=== PATIENT | female | born 1965 | race African-American/Black ===

== ENCOUNTER 2020-10-01 12:41 | Emergency (ER) | payer OTHER ==
[~2020-10-01] VITALS: Ht 167.6 cm; Wt 108.9 kg
--- NOTE | 2020-10-01 12:44 | NUR ---
ED Nurse Note: pt MARIXA HAMM RA 12 from home c/o LUQ abd pain, N/D x 4 days. pt denies vomiting, states that she also has a WARREN and has had a cough. denies any sick contacts at home. pt denies any urinary symptoms at this time, no acute distress is noted
[2020-10-01 12:46] VITALS: BP 154/91
[2020-10-01 13:16] LABS: BASOPHILS % (AUTO) 0.6 % (0.0-2.0); EOSINOPHILS % (AUTO) 0.1 % (0.0-3.0); HEMATOCRIT 48.2 % (37.0-47.0); HEMOGLOBIN 15.6 G/DL (12.0-16.0); LYMPHOCYTES % (AUTO) 32.2 % (20.0-45.0); MEAN CORPUSCULAR VOLUME 86 FL (80-99); MONOCYTES % (AUTO) 8.3 % (1.0-10.0); NEUTROPHILS % (AUTO) 58.9 % (45.0-75.0); PLATELET COUNT 227 K/UL (150-450); RED CELL DISTRIBUTION WIDTH 14.4 % (11.6-14.8); WHITE BLOOD COUNT 5.9 K/UL (4.8-10.8)
[2020-10-01 13:30] LABS: CALCIUM 8.3 MG/DL (8.5-10.1); CREATININE 1.5 MG/DL (0.55-1.30); POTASSIUM 3.5 MMOL/L (3.5-5.1)
--- NOTE | 2020-10-01 13:32 | NUR ---
ED Nurse Note: oral temp recheck: 99.2. pt states that she is still unable to provide a urine sample at this time
[2020-10-01 13:35] LABS: ALBUMIN 3.8 G/DL (3.4-5.0); ALBUMIN/GLOBULIN RATIO 0.8 (1.0-2.7); BILIRUBIN,TOTAL 0.4 MG/DL (0.2-1.0)
--- NOTE | 2020-10-01 13:46 | Emergency Room Report ---
History of Present Illness General Chief Complaint: Abdominal Pain Source: Patient (Michael Etienne M.D.) Present Illness HPI Disclaimer: Please note that this report is being documented using [employer] technology. This can lead to erroneous entry secondary to incorrect inter pretation by the dictating instrument. HPI: 55-year-old female no reported past medical history presented for complaints of nausea vomiting diarrhea generalized body aches for the past couple of days. She denies any shortness of breath. She was febrile on arrival. She has had multiple episodes of nonbloody diarrhea in addition to occasional nausea and vomiting. Intermittent coughing. She denies any sick contacts. She has not been tested for COVID-19. Is epigastric in origin and nonradiating. (Michael Etienne M.D.) Allergies: Coded Allergies: No Known Allergies (Unverified , 10/01/20) COVID-19 Screening Contact w/high risk pt: No Experienced COVID-19 symptoms?: Yes COVID-19 Testing performed [employer]IVE: No (Michael Etienne M.D.) Patient History Reviewed Nursing Documentation: PMH: Agreed; PSxH: Agreed (Michael Etienne M.D.) Nursing Documentation-PMH Past Medical History: No Stated History (Michael Etienne M.D.) Review of Systems All Other Systems: negative except mentioned in HPI (Michael Etienne M.D.) Physical Exam Vital Signs Date Time Temp Pulse Resp B/P (MAP) Pulse Ox O2 Delivery O2 Flow Rate FiO2 10/01/20 12:33 100.6 107 18 154/91 (112) 94 Room Air Sp02 EP Interpretation: reviewed, normal, other - O2 saturation around 96% General Appearance: well appearing, no apparent distress Head: normocephalic, atraumatic Eyes: bilateral eye PERRL, bilateral eye EOMI ENT: hearing grossly normal, moist mucus membranes Neck: full range of motion, supple Respiratory: lungs clear, normal breath sounds, no rhonchi, no respiratory distress, no retraction, no wheezing Cardiovascular #1: normal peripheral pulses, no murmur, tachycardia Gastrointestinal: non tender, soft, non-distended, no guarding Neurologic: alert, oriented x3, no focal defects Skin: normal color, warm/dry (Michael Etienne M.D.) Medical Decision Making Diagnostic Impression: Primary Impression: COVID-19 Additional Impressions: Syncope Generalized weakness ER Course MDM: Differential included but not limited to viral syndrome, COVID-19, ga stroenteritis, gastritis to name a few Clinical course-IV inserted, IV fluids given. Patient placed on cardiac monitoring. She was febrile on arrival and Tylenol was given. Her abdominal exam was benign. She did have flulike symptoms. She denies sick contacts. Low suspicion for surgical abdominal disease has abdomen nontender to palpation. After IV fluids, Zofran and Tylenol patient's heart rate improved, she was not hypoxic. Laboratory studies showed no evidence of leukocytosis. Labs - Laboratory Tests Test 10/01/20 13:02 White Blood Count 5.9 K/UL (4.8-10.8) Red Blood Count 5.60 M/UL (4.20-5.40) H Hemoglobin 15.6 G/DL (12.0-16.0) Hematocrit 48.2 % (37.0-47.0) H Mean Corpuscular Volume 86 FL (80-99) Mean Corpuscular Hemoglobin 27.8 PG (27.0-31.0) Mean Corpuscular Hemoglobin Concent 32.3 G/DL (32.0-36.0) Red Cell Distribution Width 14.4 % (11.6-14.8) Platelet Count 227 K/UL (150-450) Mean Platelet Volume 6.8 FL (6.5-10.1) Neutrophils (%) (Auto) 58.9 % (45.0-75.0) Lymphocytes (%) (Auto) 32.2 % (20.0-45.0) Monocytes (%) (Auto) 8.3 % (1.0-10.0) Eosinophils (%) (Auto) 0.1 % (0.0-3.0) Basophils (%) (Auto) 0.6 % (0.0-2.0) Sodium Level 138 MMOL/L (136-145) Potassium Level 3.5 MMOL/L (3.5-5.1) Chloride Level 99 MMOL/L (98-107) Carbon Dioxide Level 26 MMOL/L (21-32) Anion Gap 13 mmol/L (5-15) Blood Urea Nitrogen 14 mg/dL (7-18) Creatinine 1.5 MG/DL (0.55-1.30) H Estimated Glomerular Filtration Rate 43.5 mL/min (>60) Glucose Level 152 MG/DL (74-106) H Lactic Acid Level Pending Calcium Level 8.3 MG/DL (8.5-10.1) L Total Bilirubin 0.4 MG/DL (0.2-1.0) Aspartate Amino Transferase (AST) 39 U/L (15-37) H Alanine Aminotransferase (ALT) 37 U/L (12-78) Alkaline Phosphatase 95 U/L (46-116) Total Protein 8.4 G/DL (6.4-8.2) H Albumin 3.8 G/DL (3.4-5.0) Globulin 4.6 g/dL Albumin/Globulin Ratio 0.8 (1.0-2.7) L On reevaluation: Patient feeling improved Plan-signed out to oncoming physician to follow-up on urinalysis and reassess (Michael Etienne M.D.) ER Course This patient was turned over to me by Dr. Etienne. Please see his history and physical exam for further details. Briefly, this patient presented with a viral-like syndrome. This included body aches, nausea, vomiting and diarrhea. I had planned on discharging this patient. However, when I went to discuss her discharge instructions, the patient stated that she was barely able to walk and that she passed out today for an unknown period of time and that she did not feel safe going home. She states that she is too ill to care for herself or even get around doing her activities of daily living. She is admitted for generalized weakness and inability to care for herself while she is ill. The patient is COVID-19 positive. This patient was evaluated in the context of the global COVID-19 pandemic, which necessitated consideration that the patient might be at risk for infection with the [id number] virus that causes COVID-19. Institutional protocols and algorithms that pertain to the evaluation of patients at risk for COVID-19 and the state of rapid change based on information released by multiple regulatory bodies including the CDC and federal and state organizations. These policies and algorithms were followed during the patient's care in the ED. Addendum: The patient's insurance company requested her transfer to a [facility]. The patient is stable for transfer. The patient was accepted by Dr. Perez at [facility]. Laboratory Tests Test 10/01/20 13:02 10/01/20 14:10 White Blood Count 5.9 K/UL (4.8-10.8) Red Blood Count 5.60 M/UL (4.20-5.40) H Hemoglobin 15.6 G/DL (12.0-16.0) Hematocrit 48.2 % (37.0-47.0) H Mean Corpuscular Volume 86 FL (80-99) Mean Corpuscular Hemoglobin 27.8 PG (27.0-31.0) Mean Corpuscular Hemoglobin Concent 32.3 G/DL (32.0-36.0) Red Cell Distribution Width 14.4 % (11.6-14.8) Platelet Count 227 K/UL (150-450) Mean Platelet Volume 6.8 FL (6.5-10.1) Neutrophils (%) (Auto) 58.9 % (45.0-75.0) Lymphocytes (%) (Auto) 32.2 % (20.0-45.0) Monocytes (%) (Auto) 8.3 % (1.0-10.0) Eosinophils (%) (Auto) 0.1 % (0.0-3.0) Basophils (%) (Auto) 0.6 % (0.0-2.0) Sodium Level 138 MMOL/L (136-145) Potassium Level 3.5 MMOL/L (3.5-5.1) Chloride Level 99 MMOL/L (98-107) Carbon Dioxide Level 26 MMOL/L (21-32) Anion Gap 13 mmol/L (5-15) Blood Urea Nitrogen 14 mg/dL (7-18) Creatinine 1.5 MG/DL (0.55-1.30) H Estimated Glomerular Filtration Rate 43.5 mL/min (>60) Glucose Level 152 MG/DL (74-106) H Lactic Acid Level 1.80 mmol/L (0.4-2.0) Calcium Level 8.3 MG/DL (8.5-10.1) L Total Bilirubin 0.4 MG/DL (0.2-1.0) Aspartate Amino Transferase (AST) 39 U/L (15-37) H Alanine Aminotransferase (ALT) 37 U/L (12-78) Alkaline Phosphatase 95 U/L (46-116) Total Protein 8.4 G/DL (6.4-8.2) H Albumin 3.8 G/DL (3.4-5.0) Globulin 4.6 g/dL Albumin/Globulin Ratio 0.8 (1.0-2.7) L Urine Color Yellow Urine Appearance Slightly cloudy Urine pH 5 (4.5-8.0) Urine Specific Warden 1.025 (1.005-1.035) Urine Protein 3+ (NEGATIVE) H Urine Glucose (UA) Negative (NEGATIVE) Urine Ketones 3+ (NEGATIVE) H Urine Blood 2+ (NEGATIVE) H Urine Nitrite Negative (NEGATIVE) Urine Bilirubin Negative (NEGATIVE) Urine Urobilinogen 1 MG/DL (0.0-1.0) H Urine Leukocyte Esterase 1+ (NEGATIVE) H Urine RBC 2-4 /HPF (0 - 2) H Urine WBC 0-2 /HPF (0 - 2) Urine Squamous Epithelial Cells Many /LPF (NONE/OCC) H Urine Bacteria Few /HPF (NONE) (Alaina Serrato DO) EKG Diagnostic Results Rate: tachycardiac Rhythm: NSR ST Segments: no acute changes Other Impression Sinus tachycardia (Michael Etienne M.D.) Rhythm Strip Diag. Results EP Interpretation: yes Rate: 84 Rhythm: NSR, no PVC's, no ectopy (Michael Etienne M.D.) Chest X-Ray Diagnostic Results Chest X-Ray Diagnostic Results : Chest X-Ray Ordered: Yes # of Views/Limited/Complete: 1 View Indication: Shortness of Breath EP Interpretation: Yes Interpretation: other - mild interstitial opacities vs underinflation Impression: Other - See above. Possible mild opacities. Electronically Signed by: Alaina Serrato DO (Alaina Serrato DO) Last Vital Signs Date Time Temp Pulse Resp B/P (MAP) Pulse Ox O2 Delivery O2 Flow Rate FiO2 10/01/20 13:32 99.2 10/01/20 12:46 107 18 Room Air 10/01/20 12:46 154/91 94 (Michael Etienne M.D.) Disposition: HOME, SELF-CARE Condition: Improved Signed Out To: Dr. Evans (Michael Etienne M.D.) Scripts Ondansetron Odt* (ZOFRAN ODT*) 8 Mg Tab.rapdis 8 MG ORAL Q6H PRN for Nausea & Vomiting, #10 TAB Prov: Alaina Serrato DO 10/01/20 Azithromycin* (ZITHROMAX*) 250 Mg Tablet 250 MG ORAL see instructions, #6 TAB 0 Refills Take two tables once daily for 1 day, then one tablet once daily for 4 days. Prov: Alaina Serrato DO 10/01/20 Referrals: [facility],REFERRING (PCP) Michael Etienne M.D. Oct 01, 2020 13:46 Alaina Serrato DO Oct 01, 2020 15:18
[2020-10-01 13:56] VITALS: BP_SYST 114; BP_SYST 147; BP_DIAS 69; BP_DIAS 88
--- NOTE | 2020-10-01 14:01 | Diagnostic Imaging Report ---
Indication: Shortness of breath Technique: One view of the chest Comparison: none Findings: Body habitus limits evaluation. Inspiration is suboptimal. Apparent prominence to the interstitium, is likely a result of crowding of the bronchovascular markings and may to some extent be related to body habitus, although the possibility of mild interstitial edema or interstitial infiltrates should also be considered. The heart size is upper limits normal. Impression: Hypoventilatory exam Equivocal mild interstitial congestion versus interstitial infiltrates. Correlate with clinical findings
--- NOTE | 2020-10-01 14:17 | NUR ---
ED Nurse Note: pt able to ambulate to restroom to provide urine sample without c/o dizziness, no syncope or near syncope. pt does c/o nausea, ERMD notified
[2020-10-01 14:24] LABS: APPEARANCE,URINE SLIGHTLY CLOUDY; BILIRUBIN, URINE NEGATIVE (NEGATIVE); GLUCOSE, URINE (UA) NEGATIVE (NEGATIVE); KETONES,URINE 3+ (NEGATIVE); LEUKOCYTE ESTERASE ,URINE 1+ (NEGATIVE); NITRITE,URINE NEGATIVE (NEGATIVE); PH,URINE 5 (4.5-8.0); PROTEIN,URINE 3+ (NEGATIVE); UROBILINOGEN,URINE 1 MG/DL (0.0-1.0)
[2020-10-01 14:25] LABS: COLOR,URINE YELLOW
--- NOTE | 2020-10-01 14:45 | NUR ---
ED Nurse Note: Pt AAOx4, verbally responsive. No SOB, on room air. Denies pain at this time. Safety and comfort provided. Will cont to monitor.
[2020-10-01] MEDS ORDERED: ZITHROMAX250 MG ORAL (15:26)
[2020-10-01] MEDS ORDERED: ZOFRAN ODT8 MG ORAL (15:26)
[2020-10-01] MEDS ORDERED: dexAMETHasone 10mg/ml Inj IV ONE (15:30)
[2020-10-01] MEDS ORDERED: Metoclopramide 10mg/2ml Inj IVP ONE (15:45)
[2020-10-01 17:30] VITALS: BP 121/74
--- NOTE | 2020-10-01 19:03 | NUR ---
ED Nurse Note: Report given to Albino JASSO.
[2020-10-01 19:55] VITALS: BP 125/71
--- NOTE | 2020-10-01 19:55 | NUR ---
TRANSFER: Patient transferred to [facility] via gurney picked by 2 EMT. Pt AAOx4, verbally responsive. No SOB, on room air. IV line on left AC 20g patent and intact. No skin issues. Pt is covid positive. All belongings sent with the patient.
== END 2020-10-01 19:55 | disposition home or self-care (01) ==
LOC: EDBD 12:41 → EMR 13:01
DX: U07.1 COVID-19 (principal); R55 Syncope and collapse; R53.1 Weakness
CPT/HCPCS: 36415; 71045; 80053; 81003; 83605; 85025; 87040; 93005; 96361; 96374; 96375; 96376; J2405; J2765; J7030; U0002; Z7502; 99284